=== PATIENT | female | born 1930 | race Caucasian/White ===

== ENCOUNTER 2016-07-30 17:01 | Observation (INO) | payer MEDICARE, BC ==
[~2016-07-30] VITALS: Ht 157.5 cm; Wt 43.4 kg
[~2016-07-30 17:01] MED LIST changes: -LEVE500T9 PO
--- OUTSIDE RECORDS SUMMARY | 2016-07-30 17:07 | XMS REPORT | Referral Summary ---
Author Author [facility], [facility] Medicine Organization [facility] Address Unknown Phone Unavailable Care Team Providers Care Plastic Top Assembler Name Role Phone Jared Beaulieu Primary Care Physician [phone] Encounter VC Date(s): 05/04/16 - 05/04/16 [facility] [address] [place] [address] [[email or web address] Discharge Disposition: 01-Home or Self Care Attending Physician: Raheem Easley APRN Admitting Physician: Raheem Easley APRN Vital Signs Most recent to 1 oldest [Reference Range]: Temperature Tympanic 36.9 degC [36.6-38.1 degC] (05/04/16 1:33 PM) Peripheral Pulse 65 bpm Rate [60-100 bpm] (05/04/16 1:33 PM) Respiratory Rate 18 br/min [14-20 br/min] (05/04/16 1:33 PM) Blood Pressure 118/58 mmHg [90-140/60-90 mmHg] (05/04/16 1:33 PM) SpO2 93 % (05/04/16 1:33 PM) Problem List Condition Effective Dates Status Health Status Informant At risk of pressure Active sore(Confirmed) Benign essential Active hypertension(Confirm ed) Chronic ulcerative 2002 - 05/21/14 Resolved colitis(Confirmed) Communication Active impairment(Confirmed )1 Glaucoma(Confirmed) Active Hemorrhoids(Confirme Active d) Hx of seizure Active disorder(Confirmed) COPD, Active mild(Confirmed) Age related Active osteoporosis(Confirm ed) Syncope(Confirmed) Active Tension Active headache(Confirmed) Tissue perfusion Active alteration(Confirmed )2 Chicken Active pox(Confirmed) 1Problem added automatically by system based on initiation of Impaired Communication Plan of Care 2Problem added automatically by system based on initiation of Tissue Perfusion Cerebral Plan of Care Allergies, Adverse Reactions, Alerts No Known Medication Allergies Medications albuterol 5 mg/mL (0.5%) inhalation solution 2.5 mg 0.5 mL, NEB, q4hr, as needed for wheezing, 0 Refill(s) Start Date: 04/27/16 Status: Ordered aspirin 81 mg oral tablet 81 mg 1 tabs, Oral, Daily, # 30 tabs, 0 Refill(s), other reason (Rx) Start Date: 04/27/16 Status: Ordered atenolol 25 mg oral tablet 25 mg 1 tabs, Oral, Daily, 0 Refill(s) Start Date: 04/27/16 Status: Ordered budesonide 0.5 mg/2 mL inhalation suspension 0.5 mg 2 mL, NEB, BID, Wheezing, 0 Refill(s) Start Date: 04/23/16 Status: Ordered Dilantin 30 mg oral capsule, extended release 90 mg 3 caps, Oral, qAM, 0 Refill(s) Start Date: 04/23/16 Status: Ordered ipratropium-albuterol 0.5 mg-2.5 mg/3 mLinhalation solution 3 mL, NEB, QID, as needed for shortness of breath or wheezing, 0 Refill(s) Start Date: 04/23/16 Status: Ordered Lipitor 80 mg oral tablet 80 mg 1 tabs, Oral, Daily, 0 Refill(s) Start Date: 04/27/16 Status: Ordered OTC Calcium OTC Calcium, See Instructions, 1 tabs oral daily, 0 Refill(s) Start Date: 04/23/16 Status: Ordered phenytoin 100 mg oral capsule, extended release 100 mg 1 caps, Oral, Bedtime (once a day), 0 Refill(s) Start Date: 04/23/16 Status: Ordered Results No data available for this section Immunizations Given and Recorded Vaccine Date Status Refusal Reason influenza virus vaccine, inactivated1 04/23/16 Given influenza virus vaccine, inactivated 01/10/16 Given influenza virus vaccine, inactivated 02/13/15 Given influenza virus vaccine, inactivated 01/25/14 Recorded 1Result Comment: Lot# [id number] Procedures Procedure Date Related Diagnosis Body Site Hospitalization for Dilantin toxicity1 2014 Bilateral cataract extraction 2006 Endoscopic ethmoidectomy and Maillary Sinus 2006 Surgery Hospital admission2 2005 Hospital admission3 2005 Colonoscopy1999 Colonoscopy5 1996 Endometrial biopsy 1Hospitalized with Dilantin toxicity. 2Seizure 3Syncope 4Dr. Shannon 5Dr. Shannon Social History Social History Type Response Smoking Status Former smoker; Type: Cigarettes Assessment and Plan No data available for this section
--- OUTSIDE RECORDS SUMMARY | 2016-07-30 17:08 | XMS REPORT | Referral Summary ---
Author Author [facility], [facility] Medicine Organization [facility] Address Unknown Phone Unavailable Care Team Providers Care Riddler Operator Name Role Phone Jared Beaulieu Primary Care Physician [phone] Encounter VC Date(s): 06/11/16 - 06/11/16 [facility] [address] [place] [address] Discharge Diagnosis: Dyspnea on exertion Discharge Diagnosis: Frail Elderly Discharge Diagnosis: Hx of seizure disorder Discharge Diagnosis: Hypoxia Discharge Diagnosis: Dementia Discharge Disposition: 01-Home or Self Care Attending Physician: Jayce Beaulieu MD Admitting Physician: Jayce Beaulieu MD Vital Signs Most recent to 1 oldest [Reference Range]: Temperature Tympanic 36.3 degC [36.6-38.1 degC] *LOW* (06/11/16 1:55 PM) Peripheral Pulse 90 bpm Rate [60-100 bpm] (06/11/16 1:55 PM) Respiratory Rate 20 br/min [14-20 br/min] (06/11/16 1:55 PM) Blood Pressure 122/68 mmHg [90-140/60-90 mmHg] (06/11/16 1:55 PM) SpO2 96 % (06/11/16 1:55 PM) Problem List Condition Effective Dates Status [...] Refill(s) Start Date: 04/23/16 Status: Ordered Dilantin 100 mg oral capsule, extended release See Instructions, 130MG BID INCREASED ON 05/26/16, 0 Refill(s) Start Date: 05/27/16 Status: Ordered ipratropium-albuterol 0.5 mg-2.5 mg/3 mLinhalation solution 3 mL, NEB, QID, as needed for shortness of breath or wheezing, 0 Refill(s) Start Date: 04/23/16 Status: Ordered Lipitor 80 mg oral tablet 80 mg 1 tabs, Oral, Daily, 0 Refill(s) Start Date: 04/27/16 Status: Ordered OTC Calcium OTC Calcium, See Instructions, 1 tabs oral daily, 0 Refill(s) Start Date: 04/23/16 Status: Ordered Results Hematology Most recent to 1 oldest [Reference Range]: WBC [5.0-10.0 8.2 10*3/uL 10*3/uL] (06/11/16 2:47 PM) RBC [3.70-5.20] 4.20 (06/11/16 2:47 PM) Hgb [12.0-16.0 14.0 gm/dL gm/dL] (06/11/16 2:47 PM) Hct [37.0-47.0 %] 41.2 % (06/11/16 2:47 PM) MCV [80.0-96.0 fL] 98.1 fL *HI* (06/11/16 2:47 PM) MCH [26.0-34.0 pg] 33.3 pg (06/11/16 2:47 PM) MCHC [32.0-36.0 34.0 gm/dL gm/dL] (06/11/16 2:47 PM) RDW [0.0-14.5 %] 13.5 % (06/11/16 2:47 PM) Platelet [150-400 218 10*3/uL 10*3/uL] (06/11/16 2:47 PM) MPV [8.8-14.8 fL] 8.8 fL (06/11/16 2:47 PM) Neutrophils [50-70 63 % %] (06/11/16 2:47 PM) Band Man [0-6 %] 2 % (06/11/16 2:47 PM) Lymphocytes [20-40 24 % %] (06/11/16 2:47 PM) Abn Lymph Man [-1-0 2 % %] *HI* (06/11/16 2:47 PM) Monocytes [4-8 %] 9 % *HI* (06/11/16 2:47 PM) Eosinophils [0-6 %] 0 % (06/11/16 2:47 PM) Basophils [0-2 %] 0 % (06/11/16 2:47 PM) Neutro Absolute 5.33 [2.50-7.00] (06/11/16 2:47 PM) Lymph Absolute 2.13 [1.00-4.00] (06/11/16 2:47 PM) [place] Absolute 0.74 [0.20-0.80] (06/11/16 2:47 PM) Eos Absolute 0.00 [0.00-0.60] (06/11/16 2:47 PM) Baso Absolute 0.00 [0.00-0.30] (06/11/16 2:47 PM) Hypochrom Occasional *ABN* (06/11/16 2:47 PM) Ovalocytes Occasional *ABN* (06/11/16 2:47 PM) [place] Cell Occasional *ABN* (06/11/16 2:47 PM) Immunizations Given and Recorded Vaccine Date Status Refusal Reason influenza virus vaccine, inactivated1 04/23/16 Given influenza virus vaccine, inactivated 01/10/16 Given influenza virus vaccine, inactivated 02/13/15 Given influenza virus vaccine, inactivated 01/25/14 Recorded 1Result Comment: Lot# [id number] Procedures Procedure Date Related Diagnosis Body Site Hospitalization for Dilantin toxicity1 2014 Bilateral cataract extraction 2006 Endoscopic ethmoidectomy and Maillary Sinus 2006 Surgery Hospital admission2 2006 Hospital admission3 2005 Colonoscopy1999 Colonoscopy1996 Endometrial biopsy 1Hospitalized with Dilantin toxicity. 2Seizure 3Syncope 4Dr. New Stanton 5Dr. New Stanton Social History Social History Type Response Smoking Status Former smoker; Type: Cigarettes Assessment and Plan Extracted from: Title: Acute OV Author: Jayce Beaulieu MD Date: 06/11/16 Impression and Plan Diagnosis Cough ([id number] R05, Working, Medical). Dementia (CFJ07-JB F03.90, Discharge, Medical). Dyspnea on exertion (PFM13-SZ R06.09, Discharge, Medical). Frail Elderly (HDT06-JI R54, Discharge, Medical). Hx of seizure disorder (JHO99-RL Z86.69, Discharge, Medical). Hypoxia (PHE45-XC R09.02, Discharge, Medical). Orders Orders (Selected) Outpatient Orders InProcess (In Process) Influenza A/B: Ordered CBC w/ Differential: Ordered (Exam Ordered) Chest XR 2 Views: .
--- OUTSIDE RECORDS SUMMARY | 2016-07-30 17:08 | XMS REPORT | Referral Summary ---
Author Author [facility], Family Medicine Organization [facility] Address Unknown Phone Unavailable Care Team Providers Care Autocad Electrical Designer Name Role Phone Jared Beaulieu Primary Care Physician [phone] Encounter VC Date(s): 05/19/16 - 05/19/16 [facility] [address] [place] [address] Discharge Disposition: 01-Home or Self Care Attending Physician: Raheem Easley APRN Admitting Physician: Raheem Easley APRN Vital Signs Most recent to 1 oldest [Reference Range]: Temperature Tympanic 36.6 degC [36.6-38.1 degC] (05/19/16 3:36 PM) Peripheral Pulse 59 bpm Rate [60-100 bpm] *LOW* (05/19/16 3:36 PM) Blood Pressure 146/54 mmHg [90-140/60-90 mmHg] *HI* (05/19/16 3:36 PM) SpO2 96 % (05/19/16 3:36 PM) Problem List Condition Effective Dates Status [...] vaccine, inactivated 01/25/14 Recorded 1Result Comment: Lot# [id number] Ext [id number] Procedures Procedure Date Related Diagnosis Body Site Hospitalization for Dilantin toxicity1 2014 Bilateral cataract extraction 2007 Endoscopic ethmoidectomy and Maillary Sinus 2006 Surgery Hospital admission2 2006 Hospital admission3 2005 Colonoscopy4 1999 Colonoscopy1996 Endometrial biopsy 1Hospitalized with Dilantin toxicity. 2Seizure 3Syncope 4DrLa Nena Ortega 5Dr. Shannon Social History Social History Type Response Smoking Status Former smoker; Type: Cigarettes Assessment and Plan No data available for this section
--- OUTSIDE RECORDS SUMMARY | 2016-07-30 17:08 | XMS REPORT | Continuity of Care Document ---
Author Author [facility] Organization [facility] Address Unknown Phone Unavailable Support Name Relationship Address Phone FLAKITO KEITA MD Caregiver [address] [place] [address] Unavailable AUGUSTIVAN DO Caregiver [address] [place] [address] Unavailable JENNBHAKTIPAUL Next Of Kin Unknown [phone] Insurance Providers Guarantor Dania Sibley Address [address] [place] [address] Email DENIED NO TO PT PORT Payer Medicare Policy Number [id number] Subscriber's Name Dania Sibley Relationship 18 Self Effective Date 93 Payer [facility] Policy Number [id number] Subscriber's Name Dania Sibley Relationship 18 Self Group Number [id number] Group Name [employer]ANF Chief Complaint and Reason for Visit Chief Complaint Altered Mental Status Reason for Visit Altered mental status Problems Active Problems Medical Problem Onset Date Status Dehydration Unknown Acute Orthostatic hypotension Unknown Acute Phenytoin toxicity Unknown Acute UTI (urinary tract infection) Unknown Acute Past Problems Medical Problem Onset Date Altered mental status Unknown Medications Current Home Medications Medication Dose Units Route Directions Days Qty Instructions Start Date Albuterol Sulfate (Proventil Hfa) 6.7 Gm Hfa.aer.ad 6.7 Gm Inhalation As Needed 07/29/12 Atenolol 50 Mg Tablet 0.5 Tab Oral Daily 07/29/12 Budesonide (Pulmicort) 0.5 Mg/2 Ml Amp 1 Amp Inhalation Twice A Day 07/29/12 Calcium Carbonate/Vitamin D3 (Calcium + D 600 Mg Tablet) 1 Tab Tablet 2 Tab Oral Daily 07/29/12 Ipratropium/Albuterol Sulfate (Duoneb 2.5-0.5 Mg/3 Ml Soln) 3 Ml Ampul.neb 1 Vial Inhalation Four Times Daily as needed for Shortness Of Air 03/31 Phenytoin Sodium Extended (Dilantin) 30 Mg Capsule 3 Tab Oral Daily 07/29/12 Phenytoin Sodium Extended (Dilantin) 100 Mg Capsule 1 Cap Oral Bedtime 07/29/12 Zoledronic Acid/Mannitol/Water (Reclast 5 Mg/100 Ml Solution) 5 Mg/100 Ml Infus..btl 5 Mg Intraven Yearly 07/29/12 Past Home Medications Medication Directions Ordered Status Amoxicillin 875 Mg Tablet, 1 Tab Oral Every 12 Hours 11/02/14 Discontinued Beta-Carotene(A) W-C & E/Min (Vision Vitamins) 1 Tab Tablet, 1 Tab Oral Daily 07/29/12 Discontinued Ergocalciferol (Vitamin D2) (Vitamin D2) 50,000 Unit Capsule, 1 Cap Oral Weekly 10/31/14 Discontinued Social History Social History Problem Response Recorded Date/Time Onset Date Status Chewing Tobacco Status No 08/01/2012 12:01pm Not Applicable Not Applicable Hx Substance Use No 04/22/2016 11:33pm Not Applicable Not Applicable Hx Alcohol Use Y HARD LIQUOR 2 DRINKS DAILY 04/22/2016 11:33pm Not Applicable Not Applicable Has the pt used tobacco in the last 12 months No 10/31/2014 12:13pm Not Applicable Not Applicable Tobacco Usage none 10/31/2014 8:57am Not Applicable Not Applicable Query Response Start Date Stop Date Smoking Status Former smoker Hospital Discharge Instructions No hospital discharge instructions. Plan of Care Discharge Date 04/23/16 2:39am Disposition 02 TO [facility] Condition at Discharge Prescriptions See Medication Section Referrals FLAKITO KEITA MD Address: [address] [place] [address] [phone] Functional Status No functional status results. Allergies, Adverse Reactions, Alerts No known allergies. Immunizations Query Response on File Recorded Date/Time Hx Influenza Vaccination Y fall10/31/14 12:13pm Hx Pneumococcal Vaccination No 10/31/14 12:13pm Hx Influenza Vaccination Y fall10/31/14 12:13pm Vital Signs Acute Vital Signs Vital Response Date/Time Temperature (Fahrenheit) 98.1 deg F (96.8 - 99.1) 04/23/2016 2:39am Temperature (Calculated Celsius) 36.44418 degrees C (36.0 - 37.3) 04/23/2016 2:39am Pulse Rate (adult) 60 bpm (60 - 100) 04/23/2016 2:39am Respiratory Rate 18 breaths/min (10 - 20) 04/23/2016 2:39am O2 Sat by Pulse Oximetry 94 % (90 - 100) 04/23/2016 2:39am Blood Pressure 151/67 mm Hg 04/23/2016 2:39am Height (Feet) 5 feet 04/22/2016 11:11pm Height (Inches) 4.00 inches 04/22/2016 11:11pm Weight (Kilograms) 82.500 kg 04/22/2016 11:11pm Body Mass Index (BMI) 31.0 04/22/2016 11:11pm Results Laboratory Results Test Name Result Units Flags Reference Collection Date/Time Result Date/ Time Comments White Blood Count 6.8 T/MM3 4.5-11.0 04/23/2016 12:04/23/2016 12: 30am Red Blood Count 4.01 M/MM3 4.00-5.20 04/23/2016 12:04/23/2016 12: 30am Hemoglobin 13.1 GM/DL 12-16 04/23/2016 12:04/23/2016 12:30am Hematocrit 40.3 % 36-46 04/23/2016 12:04/23/2016 12:30am Mean Corpuscular Volume 100.5 UM3 H 80-100 04/23/2016 12:2016 12:30am Mean Corpuscular Hemoglobin 32.7 UUG 26-34 04/23/2016 12:2016 12:30am Mean Corpuscular Hemoglobin Concent 32.5 GM/DL 31-37 04/23/2016 12:04/23/2016 12:30am RDW Standard Deviation 47.4 FL 36.9-50.2 04/23/2016 12:04/23/2016 12:30am Platelet Count 203 T/MM3 130-400 04/23/2016 12:04/23/2016 12:30am Mean Platelet Volume 8.8 UM3 L 9.4-12.4 04/23/2016 12:04/23/2016 12 :30am Neutrophils (%) (Auto) 59.7 % 33-66 04/23/2016 12:04/23/2016 12: 30am Lymphocytes (%) (Auto) 27.8 % 23-45 04/23/2016 12:04/23/2016 12: 30am Monocytes (%) (Auto) 10.5 % H 0-9.0 04/23/2016 12:04/23/2016 12: 30am Eosinophils (%) (Auto) 1.6 % 0-4 04/23/2016 12:04/23/2016 12:30am Basophils (%) (Auto) 0.3 % 0-2 04/23/2016 12:04/23/2016 12:30am Immature Granulocyte % (Auto) 0.1 % 0.0-0.5 04/23/2016 12:2016 12:30am Absolute Neutrophils (auto) 4.1 T/MM3 1.8-7.7 04/23/2016 12:2016 12:30am Absolute Lymphocytes (auto) 1.9 T/MM3 1-4.8 04/23/2016 12:2016 12:30am Absolute Monocytes (auto) 0.7 T/MM3 0-0.8 04/23/2016 12:2016 12:30am Absolute Eosinophils (auto) 0.1 T/MM3 0-0.5 04/23/2016 12:2016 12:30am Absolute Basophils (auto) 0.0 T/MM3 0-0.2 04/23/2016 12:2016 12:30am Absolute Immature Granulocyte (auto 0.01 T/MM3 0.00-0.03 04/23/2016 12: 04/23/2016 12:30am D-Dimer < 150 NG/ML 0-230 04/23/2016 12:04/23/2016 12:49am <230 NG/ML D-DU=PRESUMPTIVE NEGATIVE FOR PE OR DVT >230 NG/ML D-DU=ADDITIONAL EVAL FOR PE OR DVT RECOMMENDED Icterus Index < 2 0-7 04/23/2016 12:04/23/2016 12:38am Chemistry Specimen Hemolysis < 15 0-25 04/23/2016 12:04/23/2016 12:38am 0-25: Specimen Exhibited No Hemolysis. Turbidity < 20 0-20 04/23/2016 12:04/23/2016 12:38am Sodium Level 144 MEQ/L 134-144 04/23/2016 12:04/23/2016 12:44am Potassium Level 3.9 MEQ/L 3.6-5 04/23/2016 12:04/23/2016 12:44am Chloride Level 104 MEQ/L 98-107 04/23/2016 12:04/23/2016 12:44am Carbon Dioxide Level 32 MEQ/L H 22-30 04/23/2016 12:04/23/2016 12: 44am Anion Gap 8 MEQ/L 5-15 04/23/2016 12:04/23/2016 12:44am Blood Urea Nitrogen 14.0 MG/DL 7-17 04/23/2016 12:04/23/2016 12: 44am Creatinine 0.7 MG/DL 0.7-1.2 04/23/2016 12:04/23/2016 12:44am BUN/Creatinine Ratio 20 RATIO 6-26 04/23/2016 12:04/23/2016 12: 44am Glomerular Filtration Rate Calc 79 04/23/2016 12:04/23/2016 12 :44am Glucose Level 90 MG/DL 65-110 04/23/2016 12:04/23/2016 12:44am Calculated Osmolality 278 MOSM/KG 261-280 04/23/2016 12:2016 12:44am Calcium Level 9.3 MG/DL 8.4-10.2 04/23/2016 12:04/23/2016 12:44am Total Bilirubin 0.30 MG/DL 0.20-1.30 04/23/2016 12:04/23/2016 12: 44am Alkaline Phosphatase 79 U/L 38-126 04/23/2016 12:04/23/2016 12: 44am Total Protein 7.2 G/DL 6.3-8.2 04/23/2016 12:04/23/2016 12:44am Albumin 3.7 G/DL 3.5-5.0 04/23/2016 12:04/23/2016 12:44am Globulin 3.5 G/DL 2.4-3.6 04/23/2016 12:04/23/2016 12:44am Albumin/Globulin Ratio 1.1 RATIO 1.1-2.2 04/23/2016 12:04/23/2016 12:44am Aspartate Amino Transf (AST/SGOT) 23 U/L 14-36 04/23/2016 12:04/23 12:44am Alanine Aminotransferase (ALT/SGPT) 18 U/L 9-52 04/23/2016 12:08/2016 12:45am Troponin I < 0.012 ng/ml 0-0.12 04/23/2016 12:2404/23/2016 12:55am Troponin values with a difference of 55% increase from orginal troponin value represent a true biological DELTA value. (%increase Calc=Orginal Troponin value, divided by subsequent Troponin value, multiplied by 100) Acetaminophen Level < 10 UG/ML L 10-30 04/23/2016 12:04/23/2016 12: 45am TOXIC <4 HR POST INGESTION: >150 MG/L; TOXIC <12 HR POST INGESTION: >50 MG/L Salicylates Level < 1.0 MG/DL L 2-20 04/23/2016 12:2404/23/2016 12: 45am Alcohol, Quantitative <10 MG/DL <10 04/23/2016 12:04/23/2016 12: 45am Thyroid Stimulating Hormone (TSH) 1.55 MIU/L 0.47-4.68 04/23/2016 12: 04/23/2016 1:35am Carboxyhemoglobin 0.8 % 0.5-1.5 04/23/2016 12:04/23/2016 12:46am NORMAL RANGES NONSMOKERS:0.5-1.5% SMOKERS, 1-2 PKS/D 4-5% SMOKERS, >2 PKS/D 8/9% TOXIC: >20% Urine Collection Type CLEANCATCH-MIDSTREAM 04/23/2016 12:57am 04/23 1:03am Urine Color YELLOW YELLOW 04/23/2016 12:57am 04/23/2016 1:03am Urine Turbidity CLEAR CLEAR 04/23/2016 12:57am 04/23/2016 1:03am Urine Specific [place] 1.010 L 1.015-1.025 04/23/2016 12:57am 2016 1:03am Urine pH 6.5 5.0-8.0 04/23/2016 12:57am 04/23/2016 1:03am Urine Leukocyte Esterase NEGATIVE NEGATIVE 04/23/2016 12:57am 2016 1:03am Urine Nitrite NEGATIVE NEGATIVE 04/23/2016 12:57am 04/23/2016 1:03am Urine Protein NEGATIVE NEGATIVE 04/23/2016 12:57am 04/23/2016 1:03am Urine Glucose (UA) NEGATIVE NEGATIVE 04/23/2016 12:57am 04/23/2016 1: 03am Urine Ketones NEGATIVE NEGATIVE 04/23/2016 12:57am 04/23/2016 1:03am Urine Urobilinogen 0.2 EU/DL NORMAL 04/23/2016 12:57am 04/23/2016 1: 03am Urine Bilirubin NEGATIVE NEGATIVE 04/23/2016 12:57am 04/23/2016 1: 03am Urine Blood NEGATIVE NEGATIVE 04/23/2016 12:57am 04/23/2016 1:03am Urinalysis Comment MICROSCOPIC NOT IND. 04/23/2016 12:57am 2016 1:03am Procedures No known history of procedures. Encounters Encounter Location Arrival/Admit Date Discharge/Depart Date Attending Provider Departed Emergency Room [facility] 04/22/16 11:11pm 04/23/16 2: 39am IVAN LIU DO Recent Diagnosis
--- OUTSIDE RECORDS SUMMARY | 2016-07-30 17:08 | XMS REPORT | Referral Summary ---
Author Author [facility] Organization [facility] Address Unknown Phone Unavailable Care Team Providers Care Adjunct Instructor Chemistry Name Role Phone Jared Beaulieu Primary Care Physician [phone] Encounter VC Date(s): 04/23/16 - 04/27/16 [facility] [address] [place] [address] Discharge Disposition: 03-Nursing Home Facility Attending Physician: Rosi Rodriguez MD Admitting Physician: Kristian Mejia DO Vital Signs Most recent to 1 oldest [Reference Range]: Temperature Oral 36.7 degC [35.8-37.3 degC] (04/27/16 12:00 PM) Peripheral Pulse 70 bpm Rate [60-100 bpm] (04/27/16 12:00 PM) Heart Rate Monitored 80 bpm [60-100 bpm] (04/26/16 8:01 PM) Respiratory Rate 16 br/min [14-20 br/min] (04/27/16 12:00 PM) Blood Pressure 118/61 mmHg [90-140/60-90 mmHg] (04/27/16 12:00 PM) Pulse Rate [60-100 74 bpm bpm] (04/24/16 8:56 PM) SpO2 92 % (04/27/16 12:00 PM) Remote Telemetry Ongoing (04/26/16 8:00 AM) Problem List Condition Effective Dates Status Health [...] recent to 1 oldest [Reference Range]: WBC [4.8-10.8 9.2 10*3/uL 10*3/uL] (04/27/16 7:03 AM) RBC [4.00-5.20] 3.96 *LOW* (04/27/16 7:03 AM) Hgb [12.0-16.0 12.6 gm/dL gm/dL] (04/27/16 7:03 AM) Hct [37.0-47.0 %] 39.6 % (04/27/16 7:03 AM) MCV [82.0-99.0 fL] 100.0 fL *HI* (04/27/16 7:03 AM) MCH [27.0-32.0 pg] 31.8 pg (04/27/16:03 AM) MCHC [32.0-36.0 31.8 gm/dL gm/dL] *LOW* (04/27/16 7:03 AM) RDW [11.5-14.5 %] 13.2 % (04/27/16 7:03 AM) Platelet [150-400 206 10*3/uL 10*3/uL] (04/27/16 7:03 AM) MPV [9.4-12.4 fL] 9.2 fL *LOW* (04/27/16 7:03 AM) Chemistry Most recent to 1 oldest [Reference Range]: Sodium Lvl [136-144 141 mEq/L mEq/L] (04/27/16 7:03 AM) Potassium Lvl 4.0 mEq/L [3.6-5.1 mEq/L] (04/27/16 7:03 AM) Chloride [99-109 107 mEq/L mEq/L] (04/27/16 7:03 AM) CO2 [22-32 mEq/L] 28 mEq/L (04/27/16 7:03 AM) AGAP [3-20] 6 (04/27/16 7:03 AM) BUN [4-20 mg/dL] 17 mg/dL (04/27/16 7:03 AM) Glucose Lvl [70-100 92 mg/dL mg/dL] (04/27/16 7:03 AM) Creatinine Lvl 0.57 mg/dL [0.44-1.03 mg/dL] (04/27/16 7:03 AM) eGFR [>60] >60 1 (04/27/16 7:03 AM) Calcium Lvl 8.8 mg/dL [8.6-10.0 mg/dL] (04/27/16 7:03 AM) Albumin Lvl [3.5-4.8 3.1 gm/dL gm/dL] *LOW* (04/24/16 6:49 AM) Phosphorus [2.4-4.7 3.7 mg/dL 2 mg/dL] (04/24/16 6:49 AM) Chol [0-200 mg/dL] 160 mg/dL (04/24/16 6:49 AM) Trig [0-150 mg/dL] 41 mg/dL (04/24/16 6:49 AM) HDL [>40 mg/dL] 58 mg/dL (04/24/16 6:49 AM) LDL [0-100 mg/dL] 94 mg/dL (04/24/16 6:49 AM) VLDL Cholesterol 8 mg/dL [0-30 mg/dL] (04/24/16 6:49 AM) Cardiac Risk 2.8 [0.0-5.0] (04/24/16 6:49 AM) TSH with Reflex Free 1.31 T4 [0.35-5.50] (04/23/16 4:29 AM) 1Result Comment: Multiply eGFR results by 1.21 for race. 2Result Comment: High dosages of liposomal Amphotericin B (AmBisome) therapy or other drug preparations that use a liposomal envelope to facilitate drug delivery may cause falsely elevated results for phosphorus. Therapeutic Drug Monitoring Most recent to 1 oldest [Reference Range]: Phenytoin Total Lvl 5 ug/mL [10-20 ug/mL] *LOW* (04/23/16 4:29 AM) Urinalysis Most recent to 1 oldest [Reference Range]: UA Color Yellow (04/24/16 12:00 AM) UA Appear Sl Cloudy (04/24/16 12:00 AM) UA pH [5.0-8.0] 6.0 (04/24/16 12:00 AM) UA Leuk Est Negative [Negative] (04/24/16 12:00 AM) UA Nitrite Negative [Negative] (04/24/16 12:00 AM) UA Protein Negative [Negative] (04/24/16 12:00 AM) UA Glucose Negative [Negative] (04/24/16 12:00 AM) UA Ketones Negative [Negative] (04/24/16 12:00 AM) UA Urobilinogen Negative [<1.0] (04/24/16 12:00 AM) UA Bili [Negative] Negative (04/24/16 12:00 AM) UA Blood [Negative] Negative (04/24/16 12:00 AM) UA Spec Grav 1.015 [1.003-1.030] (04/24/16 12:00 AM) Type Clean Catch (04/24/16 12:00 AM) Immunizations Given and Recorded Vaccine Date Status Refusal Reason influenza virus vaccine, inactivated1 04/23/16 Given influenza virus vaccine, inactivated 01/10/16 Given influenza virus vaccine, inactivated 02/13/15 Given influenza virus vaccine, inactivated 01/25/14 Recorded 1Result Comment: Lot# [id number] Procedures Procedure Date Related Diagnosis Body Site [...]
[2016-07-30 17:30] VITALS: Ht 157.5 cm; Wt 43.4 kg
[2016-07-30] MEDS ORDERED: ONDANSETRON 4mg/2ml INJECTION IV PRN (17:30)
[2016-07-30 18:01] VITALS: PULSE 70; RESP 22
[2016-07-30 18:10] VITALS: BP 167/81; PULSE 72; RESP 22; TEMP 97.6; O2SAT 94
--- NOTE | 2016-07-30 18:25 | NUR ---
direct admit from Dr Melendez office been feeling soa last 2 weeks. wears o2 at home. co of havibg a runny nose has a very dry mouth. states she eats well did co of abd pain.last week is soa with talking. co of weakness and unsteady when up .has problems with anxiety and dizziness. Dr Rose here.
[2016-07-30] MEDS: 1/2 NS 1,000 ML IV SCH (19:23)
[2016-07-30 19:55] VITALS: O2SAT 97
[2016-07-30] MEDS: ALBUTEROL/IPRATROPIUM INHAL. 2.5mg-0.5mg/3ml Neb. AEROSOL PRN (19:55)
[2016-07-30] MEDS: BUDESONIDE INH.SOLN. 0.5mg/2ml NEB AEROSOL SCH (19:55)
--- NOTE | 2016-07-30 23:04 | HPF ---
CHIEF COMPLAINT Difficulty breathing, increasing confusion, dizziness and unsteadiness. HISTORY OF PRESENT ILLNESS Ronel Javed is an 86-year-old female with cerebrovascular disease (history of prior stroke( as well as seizure disorder post stroke. She was seen in Dr. Beaulieu's office today for evaluation. In visiting with the patient it sounds as if she has been having more problems breathing over the past two and a half weeks. During this time she has been feeling more short of air. At times she will have wheezing but she is not having cough or sputum. She does note chest congestion as well as sinus congestion and drainage. At times it is hard for her to catch her air and she will need to pant. She almost gets to the point where she will hyperventilate, but she does have a care provider who is very good at helping her to calm her breathing. Also, her care provider reports over the past two and a half weeks she has been more confused. The patient tends to have two televisions on at home all the time and recently she started thinking there are people in the house when really it is the television. She has thought the remote control was the phone. The patient does feel much more dizzy and unsteady. Her dizziness has been problematic for the past several days to about a week. She finds it hard to walk because she is just not tracking right. She reports her appetite is stable. She denies pain with swallowing although she does note the back of her throat and mouth have been sore and dry. She does deny pain or discomfort with swallowing. She tends to eat well if someone is there to help feed her. She did have abdominal pain last week - possible secondary slow stools. She denies any urinary pain or discomfort. She has been noticing increasing anxiety over the past week to two. While she has been weak, she has not had falls or any traumas. She denies fevers or chills. Denies skin rashes or lesions. In clinic Dr. Beaulieu did initiate evaluation. She underwent CT scan of brain which was negative. Chest x-ray showed no acute infiltrate. Her oxygen saturations in clinic were okay but she was breathing shallow and rapid. Lab was drawn showing sodium elevated at 147. Additionally, her Dilantin level is elevated at 27.3. White count was normal. Urine was not completely unremarkable, possible urine infection being present. In light of her symptoms Dr. Rose was notified and patient was subsequently placed in outpatient observation status at [facility] for further evaluation and treatment. PAST MEDICAL HISTORY Cerebrovascular disease with history of stroke. Seizure disorder following stroke. Hypertension. COPD. Depression/anxiety. History of ulcerative colitis. Osteoporosis. Hemorrhoids. Glaucoma. Macular degeneration. History of seizure in 2005. History of ethmoidectomy in 2005. History of bilateral cataract extraction in 2006. ALLERGIES No known drug allergies. MEDICATIONS Proventil p.r.n. Atenolol 50 mg 0.5 tablet daily. Pulmicort 0.5 mg nebulized b.i.d. Calcium with vitamin D two tablets daily. DuoNeb p.r.n. Dilantin 100 mg q.h.s. Dilantin 30 mg three tablets daily. Reclast 5 mg IM yearly. SOCIAL HISTORY Patient is a . She resides independently but does have care providers that have been helping with her needs. She does not currently use alcohol - reporting she stopped drinking after her passed. She has a history of smoking but quit in [address]. Beaulieu is the patient's primary care provider. FAMILY HISTORY Father did have emphysema and prostate cancer. Mother had heart disease and breast cancer. The patient had a sister who had stroke. REVIEW OF SYSTEMS As above. GENERAL: Denies fevers, chills. Appetite has been stable. HEENT: Notes sinus congestion and drainage. Vision and hearing are stable. Notes dryness to mouth and throat. RESPIRATORY: As above. CARDIOVASCULAR: Denies chest pressure, heaviness, pain or palpitations. She has not been having lower extremity edema. GI: As above. : Denies urinary pain, burning or discomfort. NEUROLOGIC: Notes globalized weakness but denies localizing symptoms. PSYCHIATRIC: As above. SKIN: Denies rashes, lesions or pruritus. MUSCULOSKELETAL: Denies worsening joint aches, pains or swelling. ENDOCRINE: Denies hot or cold intolerance. Denies excessive thirst. Remainder of 10-point review of systems is negative. PHYSICAL EXAMINATION VITAL SIGNS: Height 62 inches. Weight 43.1 kg. BMI 17.4. Temperature 97.6, pulse 72/regular, respiratory rate 22 with shallow breathing. Blood pressure 167/81. 94% room air saturation. GENERAL: Well-developed, well-nourished, petite, elderly female who is awake. She interacts appropriately. She is not agitated or restless at the time of my interview and examination. HEENT: NC/AT. TAMICARSTAR. EOMI. Mucous membranes are dry. NECK: Supple. LUNGS: Decreased breath sounds bilaterally. I am not appreciating crackles or wheeze although lungs do sound somewhat tight. Her respiratory rate is elevated and lung excursion is shallow. CARDIOVASCULAR: Regular rate and rhythm. ABDOMEN: Soft, flat, nontender, nondistended. Bowel sounds are hypoactive. EXTREMITIES: No clubbing, cyanosis or edema. NEUROLOGIC: Patient is awake and alert. Cranial nerves II-XII appear grossly intact. I am not appreciating focal deficits. PSYCHIATRIC: Patient is awake and alert. She is not agitated or restless. SKIN: Warm and dry. LABORATORY Serum sodium is 147, potassium 4.1, chloride 102, CO2 33, BUN 15 with creatinine 0.8, GFR 68 and blood glucose 100. Transaminases are unremarkable. Dilantin level was elevated at 27.3. TSH is normal at 0.88. ASSESSMENT 1. Dilantin toxicity - suspect this is causing worsening confusion as well as gait instability. 2. Encephalopathy secondary to above. 3. Suspect dementia with functional decline. 4. Hypernatremia (present on admission). 5. Dyspnea - no hypoxia noted. 6. Cerebrovascular disease with history of stroke. 7. Seizure disorder. 8. Hypertension. 9. COPD. 10. Depression/anxiety. 11. Osteoporosis. PLAN 1. Will place patient in outpatient observation status at [facility] under the care of Dr. Rose. 2. Discontinue Dilantin secondary to Dilantin toxicity. Considerations for Keppra will be given. 3. Start 1/2 NS at 100 mL/hr to provide hydration. 4. Provide supplemental oxygen for respiratory support and comfort. Will initiate incentive spirometry to help pulmonary toilet. Continue with budesonide routinely and DuoNeb as needed. 5. Consult with PT/OT to assess her functional status. Will ask OT did do MMSE and CHIN. 6. Initiate SCDs for DVT prevention. 7. P.r.n. medications are okayed. 8. Will have Speech Therapy check swallow function. 9. Will involve Case Management in help with discharge arrangements. It sounds as if the patient's daughter has been trying to work on getting the patient to move to a nursing facility into [place] so patient can be closer to her grandson. 10. Discussed code status with patient. The patient is uncertain about her wishes. I did advise her to give considerations towards resuscitative status. Will leave her at FULL CODE for the current time. 11. Check vitamin B12 and RPR secondary to cognitive decline. 12. Check prealbumin to assess nutritional status. 13. Will recheck CBC and BMP in a.m. 14. Care will be returned to Dr. Beaulieu at time of discharge from [facility]. ROCIO
--- NOTE | 2016-07-30 23:31 | NUR ---
status Pt A/O x1, confused to where she is and time. Pt comfortable, no s/s of pain, no PRN meds given. Pt watching TV.
[2016-07-30 23:55] VITALS: PULSE 66; RESP 18
[2016-07-31] VITALS: BP 146/70; PULSE 66; RESP 18; TEMP 98.2; O2SAT 99
[2016-07-31] MEDS: 1/2 NS 1,000 ML IV SCH (03:45)
[2016-07-31 05:09] LABS: BASOPHILS % (AUTO) 0.3 % (0-2); EOSINOPHILS # (AUTO) 0.3 T/MM3 (0-0.5); EOSINOPHILS % (AUTO) 5.8 % (0-4); HGB - HEMOGLOBIN 12.9 GM/DL (12-16); LYMPHOCYTES # (AUTO) 1.7 T/MM3 (1-4.8); LYMPHOCYTES % (AUTO) 29.9 % (23-45); MEAN CORPUSCULAR HGB 32.4 UUG (26-34); MEAN CORPUSCULAR HGB CONC(MCHC 32.3 GM/DL (31-37); MEAN CORPUSCULAR VOLUME 100.5 UM3 (80-100); MEAN PLATELET VOLUME 9.6 UM3 (9.4-12.4); MONOCYTES # (AUTO) 0.7 T/MM3 (0-0.8); MONOCYTES % (AUTO) 12.5 % (0-9.0); NEUTROPHILS % (AUTO) 51.5 % (33-66); RED BLOOD COUNT 3.98 M/MM3 (4.00-5.20); WBC - WHITE BLOOD COUNT 5.8 T/MM3 (4.5-11.0)
[2016-07-31 05:21] LABS: ANION GAP 9 MEQ/L (5-15); BUN/CREATININE RATIO 18 RATIO (6-26); CALCIUM 8.6 MG/DL (8.4-10.2); CHLORIDE 103 MEQ/L (98-107); CO2 - CARBON DIOXIDE 31 MEQ/L (22-30); CREATININE 0.6 MG/DL (0.7-1.2); GLOMERULAR FILTRATION RATE 94; GLUCOSE 86 MG/DL (65-110); PHENYTOIN (DILANTIN) 18.3 UG/ML (10-20); SODIUM 143 MEQ/L (134-144)
[2016-07-31 05:41] LABS: PREALBUMIN 16.5 MG/DL (17.6-36.0)
--- NOTE | 2016-07-31 06:37 | NUR ---
SHIFT SUMMARY PT ALERT ORIENTED TO SELF. PT SLEEPING IN ROOM WITH TELEVISION AND LIGHTS ON AT START OF THIS RN SHIFT. LIGHTS DIMMED TELEVISION TURNED DOWN AND EVENTUALLY OFF. PT ASSISTED WITH SBA X1 TO RESTROOM FOR CONTINENT VOID. PT REQUIRED NO PRNS AND SLEPT THROUGH MOST OF THE SHIFT. PT WOKE ONCE TOWARDS END OF SHIFT AND CALLED OUT FOR HELP, PT REPORTED SHE WAS COLD AND NEEDED COVERED UP. PT WAS ABLE TO BE CONSOLED AND PT FELL BACK TO SLEEP.
--- NOTE | 2016-07-31 07:09 | NUR ---
REPORT PT HANDOFF REPORT TO [facility].
[2016-07-31 07:25] VITALS: BP 153/76; PULSE 73; RESP 16; TEMP 97.7; O2SAT 98
[2016-07-31 07:49] VITALS: PULSE 73; RESP 16
[2016-07-31] MEDS: ALBUTEROL/IPRATROPIUM INHAL. 2.5mg-0.5mg/3ml Neb. AEROSOL PRN (07:55)
[2016-07-31] MEDS: BUDESONIDE INH.SOLN. 0.5mg/2ml NEB AEROSOL SCH (07:55)
[2016-07-31 07:56] VITALS: O2SAT 97
[2016-07-31 08:00] VITALS: RESP 16
[2016-07-31 08:39] LABS: BLOOD, URINE NEGATIVE (NEGATIVE); COLOR,URINE YELLOW (YELLOW); LEUKOCYTE ESTERASE ,URINE TRACE (NEGATIVE); NITRITE,URINE NEGATIVE (NEGATIVE); UROBILINOGEN,URINE 0.2 EU/DL (NORMAL)
[2016-07-31] MEDS ORDERED: IOHEXOL 350 MG/ML 75ml INJECTION ONE (10:40)
[2016-07-31] MEDS ORDERED: NORMAL SALINE 100 ML ONE (10:41)
[2016-07-31] MEDS ORDERED: SALINE FLUSH 10ml SYRINGE ONE (10:41)
--- NOTE | 2016-07-31 11:01 | NUR ---
OT NOTE: CHIN and MMSE completed. CHIN score = 14 1/2. MMSE score = 7/30 (severe intellectual impairment). Any questions, please call [phone]. Thank you.
--- NOTE | 2016-07-31 11:11 | NUR ---
Malnutrition risk Diet: Regular; ate 100% of breakfast, or 407 kcal or 40% of daily estimated requirement. At this time, intake is sufficient for weight regain.
--- NOTE | 2016-07-31 11:39 | NUR ---
SONG ZULETA VISITED PT. SONG EXPLAINED ROLE AND PROVIDED CONTACT INFORMATION. PT PLANS TO RETURN HOME POST HOSPITAL STAY. SONG SPOKE WITH PAUL PT GRANDSON REGARDING D/C PLAN FOR PT. TOMASA STATES THAT PT WILL RETURN HOME WITH PRIVATE CARE [facility]IV[facility] AND THEY WILL TRANSPORT PT IF D/C TODAY. TOMASA IS AWARE THAT IS AWAITING ON TEST BEFORE A DECISION FOR D/C CAN BE MADE. TOMASA STATES THAT PT WILL BE MOVING IN 14 DAYS TO A FACILITY CALLED [facility] IN [place]. SONG SPOKE WITH MARIA LUISA PT DAUGHTER REGARDING D/C PLAN AND SHE CONFIRMED GABRIEL PLAN. MARIA LUISA WILL CALL SONG BACK WITH CONTACT INFORMATION FOR TRANSPORTATION.
--- NOTE | 2016-07-31 11:50 | DI ---
Indication: ITS.REASON: Dyspnea, COPD - ? pneumonia, PE PROCEDURE: CTA PULMONARY EMBOLI: Encounter: Initial Comparison: None Technique: Axial CT pulmonary angiographic phase images were performed through the chest after the administration of intravenous contrast. Coronal and Sagittal MIP reconstructed images were created and reviewed. Automated Exposure Control and Iterative Reconstruction dose reducing techniques were utilized. Contrast: Omnipaque 350 60 mL Findings: Pulmonary arteries: Exam is diagnostic to the subsegmental pulmonary arterial level. No filling defects identified to suggest a pulmonary embolus. Other findings: Minimal atelectasis in the lung bases. No pneumothorax, pneumonia or pleural effusion. No worrisome pulmonary nodule or mass. The central airways are patent. No axillary or mediastinal adenopathy. Heart size is upper limits of normal. No pericardial effusion. Pectus excavatum. The upper abdomen shows no acute findings. Diffuse severe bony demineralization without obvious acute displaced fracture. Impression: No pulmonary embolus or acute intrathoracic disease process seen. .
[2016-07-31 12:00] VITALS: BP 139/71; PULSE 85; RESP 20; TEMP 96.6; O2SAT 94
--- NOTE | 2016-07-31 12:01 | STEVAL ---
Eval Subjective and History Date/Time of Eval DATE: 07/31/16 TIME: 10:39 Medical Diagnosis Encephalopathy, difficulty breathing Treatment Order: Assessment Orientations: Person, Alert, Cooperative Primary Complaint: difficulty breathing Pain: No (Patient reported having no pain; however, patient was confused ) Significant Past Medical Hx: PAST MEDICAL HISTORY Cerebrovascular disease with history of stroke. Seizure disorder following stroke. Hypertension. COPD. Depression/anxiety. History of ulcerative colitis. Osteoporosis. Hemorrhoids. Glaucoma. Macular degeneration. History of seizure in 2005. History of ethmoidectomy in 2005. History of bilateral cataract extraction in 2006. Medical History Form Reviewed: Yes Residence Type: Private home/apartment (does have caretakers, meals on wheels ) Lives With: Alone () Prior Functional Status: Patient resides independently; however, she does have care providers bring her meals (i.e. meals on wheels) Current Functional Status: Patient was brought to [facility] due to having difficulty breathing, increasing confusion, dizziness, and unsteadiness. She's at an increased risk of aspiration. Education Subject: Swallowing Strategies Person(s) Educated: Patient Instruction Understanding Demo: Pt. verbalizes understand Education Comment NURSES ASSISTANT educated patient on reasoning for evaluation. Patient was agreeable to evaluation. Subjective and History Comment: Upon arrival, patient was sitting upright in bed eating breakfast. Breakfast consisted of toast w/ jelly, ryder, diced peaches/pears, thin apple juice via cup, thin water via straw. Patient produced a weak vocal quality during assessment. Patient did report being confused. Patient agreed to having graduate clinician, Elton, completing assessment while being supervised by JOAQUIM Rasmussen. Dysphagia Evaluation Evaluation Location: Bed Evaluation Angle: 90 Oral Peripheral Exam-facial: Facial Symmetry: No Impairment (WFL) Tongue Elevation: No Impairment (WFL) Tongue Lateralization: No Impairment (WFL) Tongue Protrusion: No Impairment (WFL) Tongue Retraction: No Impairment (WFL) Tongue Extension Midline: No Impairment (WFL) Labial Approximation: No Impairment (WFL) Volitional Cough: Minimal Impairment (weak, dry coughs ) Palatal Elevation: Minimal Impairment (reduced, weak ) Larynx Elevation During Swallo: No Impairment (WFL) Saliva Control: No Impairment (WFL) Dentition: Natural Lip Seal: Adequate-liquid (thin water via straw, thin apple juice), Adequate- solid (toast with jelly, ryder, diced peaches/pears ) Lingual Manipulation: Adequate-liquid, Adequate-solid Chewing: Adequate-solid Oral cavity clear post swallow: Adequate-liquid, Adequate-solid Swallow initiated w/o delay: Adequate-liquid, Adequate-solid Multiple swallows not needed: Adequate-liquid, Adequate-solid Voice clear&dry post swallow: Adequate-liquid, Adequate-solid No cough/throat clear: Inadequate-liquid (After taking large sips of juice and water, patient produced a few dry coughs), Inadequate-solid (After consuming several bites of ryder, patient produced multiple coughs; ryder was removed from tray) Assessment/Plan of Care Speech Therapy Impressions: An oral mechanism exam was completed. Patient exhibited natural dentition with an upper partial plate. Labial closure and lingual manipulation were within functional limits. When asked to produced "ah", patient demonstrated reduced palatal elevation and a weak, quiet vocal quality. Patient's swallow function was assessed with a bedside dysphagia evaluation. Patient's breakfast consisted of toast with jelly, ryder strips, thin water via straw, thin apple juice via cup, and diced peaches/pears. Patient alternated between solids and liquids. Patient produced coughs following trials of ryder; ryder was removed from tray. No other clinical s/s of aspiration were observed during this assessment. Lingual mastication was within functional limites while consuming solids. Laryngeal elevation was present during assessment with all trials and consistencies. Patient exhibited a clear oral cavity post swallow with all consistencies. Patient produced a clear, dry voice following swallow; however, vocal quality was weak and quiet. Recommendations are as follows: ST Treatment Plan: Evaluation Only ST Treatment Plan Frequency: N/A Treatment Plan Duration: N/A Plan of Care Comment Dysphagia evaluation was completed to assess swallow function. No further therapy sessions are needed; however, recommendations are as follows. Recommended Diet: 1) Regular diet with chopped meat 2) Thin liquids 3) Swallow Precautions: alternate between solids/liquids, take small sips/bites, sit upright during meal, remain upright following meal for 20-30 minutes 4) May benefit from further GI work up for s/s of esophageal type dysphagia due to belching Date of Visit 07/31/16 Time Visit Began: 09:57 Time Visit Ended: 10:23 ST Assess/Plan of Care: ST Treatment Charge: Swallow Eval Minutes of Individual Therapy: 26 GCODE Swallowing: G8996 - current Severity Modifier: CI - 1-19% Swallowing: G8997 - goal Severity Modifier: CI - 1-19% Swallowing: G8998 - d/c Severity Modifier: CI - 1-19% ELTON PETERSON Jul 31, 2016 10:42
--- NOTE | 2016-07-31 12:52 | PDWOUND ---
Wound Documentation Wound Management Wound : Location Modifier: Left Wound Location: Buttocks Wound Type: Pressure Ulcer Wound Dressing Frequency: other Wound Duration: one week Wound Dressing Status: FOUND: Dry & Intact Wound Drainage Amount: None Wound Drainage Odor: None/Absent Wound General Appearance: FOUND Reddened Wound Length (cm): 5 Wound Width (cm): 2 Wound Depth (cm): 0.1 Comments Pt has a Stage I Pressure ulcer which at the time wound clinic assessed was blanching to the touch. Nursing has been turning frequently and keeping pt offloaded. MARY ROSALES RN Jul 31, 2016 12:52
--- NOTE | 2016-07-31 13:32 | NUR ---
SONG ZULETA RECEIVED CALL FROM PT DAUGHTER MARIA LUISA WITH CONTACT INFORMATION FOR [facility] WHO WILL TRANSPORT PT HOME TODAY. PT AND FAMILY ARE AWARE THAT PT WILL D/C HOME TODAY. PT WILL GO HOME WITH [facility]. ORDERS HAVE BEEN SENT AND HOME HEALTH HAS ACCEPTED PT. CM SPOKE NIKOLAS AND PT WILL BE PICKED UP TODAY BETWEEN 2:30-3:00PM. PT AND FAMILY ARE AWARE TO CONTACT CM IF NEEDS ARISE.
--- NOTE | 2016-07-31 14:12 | PNPDOC ---
Subjective Date DATE: 07/31/16 TIME: 13:48 Subjective F/U: Phenytoin toxicity, Encephalopathy Doing better today. Breathing stable - gets anxious and resp rate increases, but improves with slow deep breathing. No cough/congestion. No pain with breathing. Eating well. Not with ab pain. Objective Vital Signs Vital signs Vital Signs Date Time Temp Pulse Resp B/P Pulse Ox O2 Delivery O2 Flow Rate FiO2 07/31/16 08:08 72 07/31/16 07:56 30 97 07/31/16 07:25 97.7 153/76 Nasal Cannula 2.00 Height (Feet): 5 Height (Inches): 2.00 Weight (Kilograms): 43.400 General General Appearance: Alert, Well Developed, Looks Stated Age Eyes (Brief) Eyes: FOUND: EOMI, PERRL, NOT FOUND: scleral icterus ENMT (Brief) ENMT: FOUND: hearing intact, mucosa moist Neck (Brief) Neck: FOUND: midline, NOT FOUND: nuchal rigidity, spasm Respiratory (Brief) Respiratory: NOT FOUND: clear all hammond (Decreased, no crackles), rales, wheezes Cardiovascular (Brief) Cardiac: FOUND: regular rate, regular rhythm, NOT FOUND: pedal edema Abdomen (Brief) Abdominal: FOUND: BS normo active x4, soft, NOT FOUND: distended, tender Extremities (Brief) Extremity : Side: Bilateral Extremity: leg Extremity Finding: NOT FOUND: edema Musculoskeletal (Brief) Musculoskeletal: FOUND: extremities move equally, NOT FOUND: deformity, spasm Integumentary (Brief) Integumentary: FOUND: dry, warm Neurologic (Brief) Neurological: FOUND: cranial 2-12 intact, motor (Intact ) Psychiatric (Brief) Psychiatric: FOUND: alert, normal affect, other (Slightly anxious ) Laboratory Laboratory Laboratory Tests 07/30/16 15:22 07/31/16 04:09 Laboratory Tests 07/31/16 04:09 Assessment & Plan Problems: (1) Phenytoin toxicity Status: Acute Qualifiers: Encounter type: initial encounter Injury intent: accidental or unintentional Qualified Codes: T42.0X1A - Poisoning by hydantoin derivatives, accidental (unintentional), initial encounter Assessment & Plan: POA (2) Encephalopathy Status: Resolved Assessment & Plan: Resolved (3) Hypernatremia Status: Resolved Assessment & Plan: POA (4) Dyspnea (5) Cerebrovascular disease Status: Chronic (6) Seizure disorder as sequela of cerebrovascular accident Status: Chronic (7) Dementia Status: Chronic Qualifiers: Dementia type: unspecified type Dementia behavioral disturbance: without behavioral disturbance Qualified Codes: F03.90 - Unspecified dementia without behavioral disturbance (8) COPD (chronic obstructive pulmonary disease) Status: Chronic Qualifiers: COPD type: unspecified COPD Qualified Codes: J44.9 - Chronic obstructive pulmonary disease, unspecified (9) HTN (hypertension) Status: Chronic Qualifiers: Hypertension type: essential hypertension Qualified Codes: I10 - Essential (primary) hypertension (10) Depression Status: Chronic Qualifiers: Depression Type: unspecified Qualified Codes: F32.9 - Major depressive disorder, single episode, unspecified (11) Anxiety Status: Chronic (12) Age related osteoporosis Status: Chronic Qualifiers: Presence of current pathological fracture: without current pathological fracture Qualified Codes: M81.0 - Age-related osteoporosis without current pathological fracture Plan/Intensity of Service CT PE protocol performed to exclude occult pathology - negative. Will stop phenytoin and initiate Keppra 500mg BID for seizure control to decrease risk for future toxicity. CM has made arrangements for outpatient Home Health and PT. Family looking at having pt admitted to nursing facility in ~ 2 weeks. Encourage slow, deep breathing to help decrease dyspnea and anxiety. As phenytoin level normalize, sodium improved, and no evidence for UTI, can discharge to home. F/U with Dr Beaulieu in 1 week. See orders for details. Case discussed with CM. DVT Prophylaxis: SCD'S Code Status Full Code, unverified Hospital Course Summary Disclaimer The hospital course summary below is not to be considered part of the above Progress Note. Hospital Course Summary 07/[address] patient in outpatient observation status at [facility] under the care of Dr. Rose. Discontinue Dilantin secondary to Dilantin toxicity. Considerations for Keppra will be given. Start 1/2 NS at 100 mL/hr to provide hydration. Provide supplemental oxygen for respiratory support and comfort. Will initiate incentive spirometry to help pulmonary toilet. Continue with budesonide routinely and DuoNeb as needed. Consult with PT/OT to assess her functional status. Will ask OT did do MMSE and CHIN. Initiate SCDs for DVT prevention. P.r.n. medications are okayed. Will have Speech Therapy check swallow function. Involve Case Management in help with discharge arrangements. It sounds as if the patient's daughter has been trying to work on getting the patient to move to a nursing facility into [place] so patient can be closer to her grandson. Discussed code status with patient. The patient is uncertain about her wishes. I did advise her to give considerations towards resuscitative status. Will leave her at FULL CODE for the current time. Check vitamin B12 and RPR secondary to cognitive decline. Check prealbumin to assess nutritional status. Will recheck CBC and BMP in a.m. Care will be returned to Dr. Beaulieu at time of discharge from [facility]. 07/31 Doing better today. Breathing stable - gets anxious and resp rate increases, but improves with slow deep breathing. No cough/congestion. No pain with breathing. Eating well. CT PE protocol performed to exclude occult pathology - negative. Will stop phenytoin and initiate Keppra 500mg BID for seizure control to decrease risk for future toxicity. CM has made arrangements for outpatient Home Health and PT. Family looking at having pt admitted to nursing facility in ~ 2 weeks. Encourage slow, deep breathing to help decrease dyspnea and anxiety. As phenytoin level normalize, sodium improved, and no evidence for UTI, can discharge to home. F/U with Dr Beaulieu in 1 week. See orders for details. AJIT ROSE MD Jul 31, 2016 13:51
[2016-07-31] MEDS ORDERED: LEVE500T9 PO (14:13)
--- NOTE | 2016-07-31 15:57 | NUR ---
Dismissed Printed dismissal instructions went over with patient and patient's family. No questions stated. Patient's family stated they would remove Dilantin from patient's medications so she could not take anymore. They understand to fill prescription for Keppra and begin taking. Patient out of facility in wheelchair accompanied by staff and family. Personal belongings sent home with patient.
--- NOTE | 2016-08-01 15:28 | DSF ---
ADMISSION DIAGNOSIS Phenytoin toxicity. DISCHARGE DIAGNOSIS Phenytoin toxicity--resolved. ASSOCIATED CONDITIONS AND COMPLICATIONS Encephalopathy--improved. Dementia with functional decline. Hypernatremia (present on admission)--resolved. Dyspnea. Cerebrovascular disease with history of stroke. Seizure disorder following stroke. Hypertension. COPD. Depression/anxiety. Osteoporosis. Stage I pressure ulcer of coccyx. PROCEDURES CT PE protocol--no pathology identified. CONSULTS PT, OT, Speech. CLINICAL RESUME Ronel Javed is an 86-year-old female with cerebrovascular disease (history of prior stroke (as well as seizure disorder post stroke). She was seen in Dr. Beaulieu's office today for evaluation. In visiting with the patient, it sounds as if she has been having more problems breathing over the past two and a half weeks. During this time she has been feeling more short of air. At times she will have wheezing but she is not having cough or sputum. She does note chest congestion as well as sinus congestion and drainage. At times it is hard for her to catch her air and she will need to pant. She almost gets to the point where she will hyperventilate, but she does have a care provider who is very good at helping her to calm her breathing. Also, her care provider reports over the past two and a half weeks she has been more confused. The patient tends to have two televisions on at home all the time and recently she started thinking there are people in the house when really it is the television. She has thought the remote control was the phone. The patient does feel much more dizzy and unsteady. Her dizziness has been problematic for the past several days to about a week. She finds it hard to walk because she is just not tracking right. She reports her appetite is stable. She denies pain with swallowing although she does note the back of her throat and mouth have been sore and dry. She does deny pain or discomfort with swallowing. She tends to eat well if someone is there to help feed her. She did have abdominal pain last week--possibly secondary to slow stools. She denies any urinary pain or discomfort. She has been noticing increasing anxiety over the past week to two. While she has been weak, she has not had falls or any traumas. She denies fevers or chills. Denies skin rashes or lesions. In clinic Dr. Beaulieu did initiate evaluation. She underwent CT scan of brain which was negative. Chest x-ray showed no acute infiltrate. Her oxygen saturations in clinic were okay but she was breathing shallow and rapid. Lab was drawn showing sodium elevated at 147. Additionally, her Dilantin level is elevated at 27.3. White count was normal. Urine was not completely unremarkable, possible urine infection being present. In light of her symptoms Dr. Rose was notified and patient was subsequently placed in outpatient observation status at [facility] for further evaluation and treatment. For complete details of the H&P, refer to that document. LABORATORY Serum sodium is 147, potassium 4.1, chloride 102, CO2 33, BUN 15, with creatinine 0.8, GFR 68, and blood glucose 100. Transaminases are unremarkable. Dilantin level was elevated at 27.3. TSH is normal at 0.88. HOSPITAL COURSE Patient was placed in outpatient observation status at [facility] under the care of Dr. Rose. In light of her Dilantin toxicity and encephalopathy, her Dilantin was held. We did initiate half-normal saline at 100 mL an hour to provide hydration. Supplemental oxygen was provided for comfort measures. She was not hypoxic but would tend to breathe shallow and then hyperventilate--she did feel oxygen was somewhat helpful. SCDs were initiated for DVT prophylaxis. PT, OT, and Speech were consulted for functional evaluation. Code status was discussed with the patient. She was uncertain about her wishes. We left her at FULL CODE during the hospitalization. Vitamin B12 and RPR were ordered secondary to her cognitive decline, but these were pending at time of discharge. Lab was monitored. By hospital day #1, she was doing a little better. Lab was showing improvement in that her white count was normal and sodium had improved to 143. TSH was normal at 0.8. Phenytoin level was rechecked and had normalized at 18.3. She had no seizure activity during the hospitalization. She did participate well with PT, OT, and Speech, and we saw some improvement of her functional abilities. With her memory loss, she does require close supervision. She already has home aids coming in and helping with her frequently. We did make arrangements for home health as well as PT for further evaluation and assistance. Family members are looking at having her transition up to nursing facility in the [facility] in the upcoming weeks. As her breathing was shallow and patient perceived shortness of breath, we did proceed with CT PE protocol to exclude pulmonary pathology. This was unremarkable for acute pulmonary embolism, infiltrate, mass, or other abnormalities. By time of discharge, she was eating and drinking well. Her vitals were stable, and she was afebrile. We had discontinued her Dilantin during hospitalization and will initiate Keppra for seizure prophylaxis in the outpatient setting. She is able to be discharged to home in stable condition. NARRATIVE DISCLAIMER: Above narrative is a brief summary of the patient's hospitalization. For complete details of the hospital course, refer to the medical record. DISCHARGE CONDITION Stable/good. DIET Regular. ACTIVITIES As tolerated. MEDICATIONS Keppra 500 mg p.o. b.i.d. Stop Dilantin. Proventil HFA p.r.n. Atenolol 50 mg one-half tablet daily. Pulmicort 1 ampule b.i.d. Calcium with vitamin D two tablets daily. DuoNeb nebulized q.i.d. p.r.n. shortness of air. Reclast 5 mg IV yearly. FOLLOWUP Patient will follow with Dr. Beaulieu in one week, calling or returning sooner as problems or need indicate. INSTRUCTIONS TO PATIENT Patient was instructed on her diagnoses and treatments provided. We discussed rationale behind discontinuing Dilantin. It is hopeful she will have good control of her seizure disorder with Keppra and less likelihood for adverse effect and toxicity. We encouraged her on a healthy, well-rounded diet and activities. We encouraged her to be adherent with medications. Home health arrangements were made. She will notify provider if she has a temperature greater than 100.4 or worsening shortness of breath, breathing, or sputum. Should problems or need occur, she can be in contact with Dr. Beaulieu. If symptoms become quite dire, she can present to emergency room for acute evaluation. She voiced understanding of the above. Time spent with discharge greater than 35 minutes. ROCIO
== END 2016-07-31 15:23 | disposition home health service (06) ==
LOC: MED 17:01
PROVIDERS: ADMIT Hospitalist; ATTEND Hospitalist
DX: T42.0X1A Poisoning by hydantoin derivatives, accidental (unintentional), initial encounter (principal); G92 Toxic encephalopathy; Y92.89 Other specified places as the place of occurrence of the external cause; F03.90 Unspecified dementia, unspecified severity, without behavioral disturbance, psychotic disturbance, mood disturbance, and anxiety; I67.9 Cerebrovascular disease, unspecified; I69.398 Other sequelae of cerebral infarction; G40.909 Epilepsy, unspecified, not intractable, without status epilepticus; E87.0 Hyperosmolality and hypernatremia; I10 Essential (primary) hypertension; J44.9 Chronic obstructive pulmonary disease, unspecified; L89.321 Pressure ulcer of left buttock, stage 1; M81.0 Age-related osteoporosis without current pathological fracture; F41.8 Other specified anxiety disorders; R06.02 Shortness of breath; Z68.1 Body mass index [BMI] 19.9 or less, adult; Z87.19 Personal history of other diseases of the digestive system; Z87.891 Personal history of nicotine dependence; Z79.82 Long term (current) use of aspirin; Z79.899 Other long term (current) drug therapy
CPT/HCPCS: 36415; 71275; 80048; 80185; 81003; 82607; 84134; 84443; 85025; 86592; 92610; 94640; 96360; 96361; 97162; 97166; 97535; A6209; G0378; G8978; G8980; G8987; G8988; G8989; G8996; G8997; G8998; J7050; J7626; Q9967; 99218

== ENCOUNTER → 2016-07-30 | Outpatient (CLI) | payer MEDICARE, BC ==
[~2016-07-30] MED LIST: ALBU3SOL7 IH; ALBU6.7H4 IH; ATEN-39 PO; BUDE0.5A IH; CALC-586 PO; LEVE500T9 PO; PHEN100C84 PO; PHEN30CA PO; ZOLE5INF IV
[2016-07-30 15:53] LABS: ALBUMIN 4.2 G/DL (3.5-5.0); ALBUMIN/GLOBULIN RATIO 1.1 RATIO (1.1-2.2); ALKALINE PHOSPHATASE 81 U/L (38-126); ALT (SGPT) 35 U/L (9-52); ANION GAP 12 MEQ/L (5-15); AST (SGOT) 27 U/L (14-36); BUN/CREATININE RATIO 19 RATIO (6-26); CALCIUM 9.7 MG/DL (8.4-10.2); CHLORIDE 102 MEQ/L (98-107); CO2 - CARBON DIOXIDE 33 MEQ/L (22-30); CREATININE 0.8 MG/DL (0.7-1.2); GLOMERULAR FILTRATION RATE 68; GLUCOSE 100 MG/DL (65-110); PHENYTOIN (DILANTIN) 27.3 UG/ML (10-20); POTASSIUM 4.4 MEQ/L (3.6-5); SODIUM 147 MEQ/L (134-144)
== END ==
LOC: LABN 15:35
PROVIDERS: ATTEND Family Medicine
DX: R41.0 Disorientation, unspecified (principal)
CPT/HCPCS: 80053; 80185